=== PATIENT | male | born 1995 | race Two or more races ===

== ENCOUNTER 2019-06-30 23:42 | Emergency (ER) | payer BC, SELFPAY ==
[~2019-06-30] VITALS: Ht 182.9 cm; Wt 99.8 kg
[2019-07-01 00:06] VITALS: Ht 182.9 cm; Wt 99.8 kg
[2019-07-01 03:11] VITALS: BP 131/75
== END 2019-07-01 03:11 | disposition home or self-care (01) ==
LOC: ED 23:42
DX: J06.9 Acute upper respiratory infection, unspecified (principal); Z20.828 Contact with and (suspected) exposure to other viral communicable diseases
CPT/HCPCS: Q0092

== ENCOUNTER 2019-07-01 05:36 | Emergency (ER) | payer BC, SELFPAY ==
[~2019-07-01] VITALS: Ht 182.9 cm; Wt 95.3 kg
[2019-07-01 05:57] VITALS: Ht 182.9 cm; Wt 95.3 kg
[2019-07-01 07:37] LABS: CALCIUM 8.6 mg/dL (8.5-10.1); CARBON DIOXIDE 24.9 mmol/L (21-32); CHLORIDE SERUM 103 mmol/L (98-107); GFR1 > 60 mL/min; GLUCOSE SERUM 92 mg/dL (74-106); POTASSIUM SERUM 3.6 mmol/L (3.5-5.1); SODIUM SERUM 139 mmol/L (136-145)
[2019-07-01 08:19] VITALS: BP 110/73
== END 2019-07-01 08:19 | disposition home or self-care (01) ==
LOC: ED 05:36
PROVIDERS: Specialist
DX: F10.20 Alcohol dependence, uncomplicated (principal); G40.909 Epilepsy, unspecified, not intractable, without status epilepticus
CPT/HCPCS: J7030